=== PATIENT | male | born 1970 | race Caucasian/White ===

== ENCOUNTER 2024-08-30 02:52 | Emergency (ER) | payer MEDICARE ==
[~2024-08-30] VITALS: Ht 180.3 cm; Wt 157.4 kg
[~2024-08-30 02:52] MED LIST: AMOXICILLIN500 MG PO; PROAIR DIGIHAL90 MCG PO
[2024-08-30 02:58] VITALS: RESP 24; TEMP 99.7
[2024-08-30] MEDS: ACETAMINOPHEN 325 MG TAB PO STA (03:32)
[2024-08-30] MEDS: KETOROLAC TROMETHAMINE 60 MG/2 ML VIAL IM ONE (04:06)
[2024-08-30 05:30] VITALS: PULSE 111
[2024-08-30] MEDS ORDERED: CIPROFLOXACIN500 MG PO (05:55)
[2024-08-30 06:21] VITALS: BP 142/79; O2SAT 95
== END 2024-08-30 06:15 | disposition home or self-care (01) ==
LOC: ER 02:57
DX: N50.811 Right testicular pain (principal); N45.1 Epididymitis; N43.3 Hydrocele, unspecified; E11.9 Type 2 diabetes mellitus without complications
CPT/HCPCS: 76870; 93976; 99284; J1885